=== PATIENT | male | born 1995 | race Caucasian/White ===

== ENCOUNTER 2018-01-12 10:40 | Emergency (ER) | payer OTHER ==
--- NOTE | 2018-01-12 13:09 | RAD ---
FOUR VIEWS LEFT ELBOW: Indication: Left elbow injury. Comparison: None. FINDINGS: No acute fracture or subluxation is evident. No joint capsular distention is noted. IMPRESSION: No acute osseous abnormality. POS: [facility]
--- NOTE | 2018-01-12 13:12 | RAD ---
TWO VIEWS RIGHT HIP: Indication: Right hip injury. Comparison: None. FINDINGS/IMPRESSION: No acute fracture or subluxation is evident. Soft tissues are normal appearing. POS: [facility]
--- NOTE | 2018-01-12 13:13 | RAD ---
FOUR VIEWS RIGHT KNEE: History: Right knee injury. Comparison: None. FINDINGS: No acute fracture or subluxation is evident. There is mild joint capsular distention. IMPRESSION: NO acute osseous abnormality. Mild joint capsular distention. POS: [facility]
--- NOTE | 2018-01-12 13:13 | RAD ---
THREE VIEWS LEFT HAND: Indication: Left hand injury and pain. Comparison: None. FINDINGS: No acute fracture or subluxation is evident. Soft tissues are preserved. IMPRESSION: No acute osseous abnormality. POS: [facility]
--- NOTE | 2018-01-12 13:15 | RAD ---
FOUR VIEWS RIGHT ELBOW: Indication: Right elbow injury. Comparison: None. FINDINGS: No acute fracture or subluxation is evident. Radiocapitellar alignment is within normal limits. No james int capsular distention is evident. IMPRESSION: No acute osseous abnormality. POS: [facility]
--- NOTE | 2018-01-12 13:16 | RAD ---
THREE VIEWS OF THE RIGHT HAND: Indication: Right hand injury. Comparison: None. FINDINGS: No acute fracture or subluxation is evident. No radiopaque foreign body is noted. IMPRESSION: No acute osseous abnormality. POS: [facility]
[2018-01-12] MEDS ORDERED: Adacel (T-DAP) 0.5 ML VIAL ONE (13:21)
[2018-01-12] MEDS ORDERED: Lidocaine 1% PF 5 ML VIAL ONE (13:21)
[2018-01-12] MEDS ORDERED: Bacitracin Zinc 1 Packet ONE (14:32)
== END 2018-01-12 14:53 | disposition home or self-care (01) ==
LOC: ERS 10:40
DX: S51.011A Laceration without foreign body of right elbow, initial encounter (principal); S51.012A Laceration without foreign body of left elbow, initial encounter; S83.91XA Sprain of unspecified site of right knee, initial encounter; V29.9XXA Motorcycle rider (driver) (passenger) injured in unspecified traffic accident, initial encounter
CPT/HCPCS: 12002; 90715; J2001